=== PATIENT | male | born 1985 | race Hispanic/Latino ===

== ENCOUNTER 2023-01-20 16:30 | Emergency (ER) | payer BC ==
[~2023-01-20] VITALS: Ht 167.6 cm; Wt 106.6 kg
[2023-01-20 17:10] VITALS: BP 150/59; PULSE 105; RESP 14; O2SAT 98
== END 2023-01-20 18:30 | disposition left against medical advice (07) ==
LOC: EDH 16:30
DX: M79.10 Myalgia, unspecified site (principal); Z53.21 Procedure and treatment not carried out due to patient leaving prior to being seen by health care provider

== ENCOUNTER 2023-03-25 01:27 | Emergency (ER) | payer BC, OTHER ==
[~2023-03-25] VITALS: Ht 165.1 cm; Wt 111.6 kg
[2023-03-25 03:19] VITALS: RESP 18
[2023-03-25 04:03] VITALS: BP 108/62; PULSE 88; O2SAT 96
== END 2023-03-25 04:10 | disposition home or self-care (01) ==
LOC: EDH 01:27 → EEVIPCON 01:27 → EDH 04:10
DX: M54.6 Pain in thoracic spine (principal); R07.89 Other chest pain; E11.9 Type 2 diabetes mellitus without complications; I10 Essential (primary) hypertension
CPT/HCPCS: 71110; 72072